=== PATIENT | male | born 1995 | race Caucasian/White ===

== ENCOUNTER 2017-09-24 23:28 | Emergency (ER) | payer SELFPAY ==
[2017-09-25] MEDS ORDERED: ACETAMINOPHEN 325 MG TAB PO ONE
[2017-09-25] MEDS ORDERED: NS 1,000 ML IV ONE
[2017-09-25] MEDS ORDERED: OXYCODONE/APAP 5/325 TAB PO ONE
[2017-09-25] MEDS ORDERED: ACETAMINOPHEN 325 MG TAB ONE
--- NOTE | 2017-09-25 | EDPHY ---
General Time Seen by Provider: 09/24/17 23:48 Narrative: CHIEF COMPLAINT: Cough, body aches, twitching, fever HISTORY OF PRESENT ILLNESS: Patient complains of 2 days history of fever, cough, body aches. He describes malaise, twitching of the muscles. Symptoms are [id number]. They are persistent and constant. Minimal improvement with gdak-[id number] ibuprofen. He has occasional headache when he feels his temperature arising. He has no neck pain or stiffness. No chest pain. No abdominal pain. No urinary complaints. No sore throat. No rash. His cough is mostly dry and nonproductive. No other associated complaints or modifying factors. REVIEW OF SYSTEMS: Ten systems reviewed and are negative unless otherwise noted in the HPI PCP: None SPECIALISTS: None PAST MEDICAL HISTORY: Denies any medical history PAST SURGICAL HISTORY: Denies any surgical history SOCIAL HISTORY: Daily smoker. Rare alcohol use. Rare marijuana use. Currently working in living here locally. Originally from [place], moving here 1 year ago FAMILY HISTORY: Noncontributory EXAMINATION General Appearance: Alert, no distress, perseverating Head: normocephalic, atraumatic Eyes: Pupils equal and round, no conjunctival pallor or injection. No icterus. ENT, Mouth: Mucous membranes dry. Airway widely patent. There is no erythema or edema Neck: Normal inspection, supple, non-tender. Painless range of motion in all planes. No meningeal signs. Respiratory: Scattered rhonchi. No wheezing. No crackles. No diminishment. No distress. Cardiovascular: Tachycardic rate. Regular rhythm. No murmur Gastrointestinal: Abdomen is soft and nontender. Nondistended. No hepatosplenomegaly. Back: non-tender, no bony abnormalities Neurological: GCS 15. A&O, nonfocal, normal gait. Strength is symmetric in all 4 limbs. Skin: Warm and dry, no rash. No petechiae. No purpura. Extremities: Nontender, no pedal edema Psychiatric: Mood and affect normal DIFFERENTIAL DIAGNOSES: Including but not limited to influenza, bronchitis, pneumonia, meningitis, dehydration, viral syndrome MDM: 11:55 p.m. Flu-like symptoms with examination that is consistent with this. He does have a fever at time of arrival he is also tachycardic. He is not tachypneic. He is not hypoxemic. He has not hypotensive. His examination does appear to be that of influenza. He has no nuchal rigidity or meningeal signs. He does have mild rhonchi but no crackles or diminishment on auscultation. I have ordered IV placement and IV fluid due to his tachycardia and apparent dehydration. I have ordered laboratory studies and influenza test. I have also ordered Tylenol and 1 Percocet for his cough and body aches. He is in no acute distress. 12:30 a.m. CBC is unremarkable with a mild viral shift. No leukocytosis. I re-evaluated the patient is feeling significantly better after IV fluid. High suspicion for influenza or influenza type illness. He remains awake alert no acute distress. He no longer feels warm and does not have a fever at this time. I do feel he will be stable for discharge home with symptomatic medications as discussed. Influenza test is pending but he is not a Tamiflu candidate regardless of the result. He will be discharged home with instructions to increase fluid intake, ibuprofen [id number] and nausea medicine as provided. Also short course of Tylenol with codeine for the cough and should she developed body aches. He has strict ED precautions discussed. He has instructions to follow up with primary care physician outpatient, and I provided the on-call information for him. He is comfortable with this plan and will be discharged home stable condition. SUPERVISION: Patient was independently examined, but I discussed the case with my secondary supervising physician Dr. Pan - History Smoking Status: Current some day smoker - Objective Vital Signs: Initial Vital Signs Temperature (C) 102.4 F H 09/24/17 23:34 Heart Rate 103 H 09/24/17 23:34 Respiratory Rate 20 09/24/17 23:34 Blood Pressure 102/65 09/24/17 23:34 O2 Sat (%) 93 09/24/17 23:34 O2 Delivery Mode Room Air Allergies/Adverse Reactions: Penicillins Allergy (Verified 09/27/17 11:58) Home Medications: Medication Instructions Recorded Ibuprofen 09/24/17 Testosterone IM 09/24/17 Acetaminophen/Codeine 300/30Mg 1 each PO Q6 PRN #7 tab 09/25/17 [Tylenol #3 (*)] Laboratory Results: Laboratory Results 09/25/17 00:10 09/25/17 00:10 Medications Given: Discontinued Medications Acetaminophen (Tylenol) 650 mg PO EDNOW ONE Stop: 09/25/17 00:01 Last Admin: 09/25/17 00:02 Dose: 650 mg Sodium Chloride (Ns) 1,000 mls @ 0 mls/hr IV EDNOW ONE; Wide Open PRN Reason: Protocol Stop: 09/25/17 00:01 Last Admin: 09/25/17 00:13 Dose: 1,000 mls Oxycodone/Acetaminophen (Percocet 5/325) 1 tab PO EDNOW ONE Stop: 09/25/17 00:01 Last Admin: 09/25/17 01:04 Dose: Not Given Departure - Departure Disposition: Home, Routine, Self-Care Clinical Impression: Influenza-like symptoms, Bronchitis Condition: Good Instructions: Influenza (ED), Acute Bronchitis (ED) Additional Instructions: 1. Ibuprofen 600 mg every 8 hr as needed 2. Tylenol 500mg every 6 hr as needed. You may take up to 1000 mg every 6 hr if you are not taking the medication I prescribed 3. Medication as prescribed as needed 4. Contact the on-call primary care physician as provided 5. ED precautions as discussed Referrals: [facility],. [Clinic] - As per Instructions Judit Sears MD [Medical Doctor] - As per Instructions Stand Alone Forms: Work Excuse Prescriptions: Acetaminophen/Codeine 300/30Mg [Tylenol #3 (*)] 1 each PO Q6 PRN #7 tab PRN Reason: Pain, Mild
[2017-09-25 00:19] LABS: PLATELET COUNT 113 10^3/uL (150-400)
[2017-09-25 01:05] VITALS: BP 110/65; PULSE 76; RESP 16; TEMP 99.5; O2SAT 95
== END 2017-09-25 01:04 | disposition home or self-care (01) ==
DX: J11.1 Influenza due to unidentified influenza virus with other respiratory manifestations (principal); J40 Bronchitis, not specified as acute or chronic; F17.200 Nicotine dependence, unspecified, uncomplicated; E86.9 Volume depletion, unspecified

== ENCOUNTER 2017-09-27 11:53 | Emergency (ER) | payer BC ==
--- NOTE | 2017-09-27 12:14 | EDPHY ---
H & P Time Seen by Provider: 09/27/17 12:06 HPI/ROS: CHIEF COMPLAINT: Re-evaluation pneumothorax HISTORY OF PRESENT ILLNESS: 22-year-old male in the ER for recheck after he was diagnosed with a small apical pneumothorax 3 days ago in the emergency department. He has continued URI symptoms. His pain is controlled. No new dyspnea. No chest pain. No neck pain. REVIEW OF SYSTEMS: A ten point review of systems was performed and is negative with the exception of the items mentioned in the HPI PAST MEDICAL & SURGICAL HISTORY: No pertinent medical or surgical history SOCIAL HISTORY: No drug use PHYSICAL EXAM (Prior to examination, patient consented to physical exam, hands were washed and my usual and customary physical exam procedures followed) 1) GENERAL: Well-developed, well-nourished, alert and oriented. Appears to be in no acute distress. Speaking full sentences no signs of respiratory distress 2) HEAD: Normocephalic, atraumatic 3) HEENT: Pupils equal, round, reactive to light bilaterally. Sclera anicteric. Nasopharynx, oropharynx, clear, no lesions. Ears bilaterally with normal tympanic membranes. 4) NECK: Full range of motion, no meningeal signs. 5) LUNGS: Clear auscultation bilaterally, no wheezes, no rhonchi, no retractions. No crepitus. 6) HEART: Regular rate and rhythm, no murmur, no heave, no gallop. 7) ABDOMEN: No guarding, no rebound, no focal tenderness, negative McBurney's, negative Galarza's, negative Rovsing's, negative peritoneal sign, 8) MUSCULOSKELETAL: Moving all extremities, no focal areas of tenderness, no obvious trauma. No peripheral edema or discoloration. 9) BACK: No CVA tenderness, no midline vertebral tenderness, no fluctuance, no step-off, no obvious trauma, no visual or palpable abnormality. 10) SKIN: No rash, no petechiae. 11) Psychiatric: Patient is oriented X 3, there is no agitation. DIFFERENTIAL DIAGNOSIS: In no particular include but limited to pneumonia, resolving pneumothorax, increasing pneumothorax Smoking Status: Current some day smoker Constitutional: Initial Vital Signs Temperature (C) 37.3 C 09/27/17 12:00 Heart Rate 86 09/27/17 12:00 Respiratory Rate 18 09/27/17 12:00 Blood Pressure 121/68 H 09/27/17 12:00 O2 Sat (%) 95 09/27/17 12:00 O2 Delivery Mode Room Air Allergies/Adverse Reactions: Penicillins Allergy (Verified 09/27/17 11:58) Home Medications: Medication Instructions Recorded Ibuprofen 09/24/17 Testosterone IM 09/24/17 Acetaminophen/Codeine 300/30Mg 1 each PO Q6 PRN #7 tab 09/25/17 [Tylenol #3 (*)] MDM/Departure - MDM Imaging Results: Imaging Impressions Chest X-Ray 09/27/17 11:55 Impression: No evidence for a left pneumothorax. No evidence for acute cardiopulmonary abnormality. Images reviewed myself ED Course/Re-evaluation: Patient was re-evaluated with serial examinations most recent 12:57 p.m.. I discussed his imaging results showing no identifiable pneumothorax. I think the patient can be discharged home. We discussed his URI symptoms. We discussed supportive therapy for URI. Plan will be discharge home, given a note for work and school. Avoid going to altitude. Given follow-up information with Dr. Jasmine Weaver for follow-up of spontaneous pneumothorax although there is currently no evidence for this. To return to ER immediately if you develop shortness of breath or any other symptoms that concern him. Care of patient under supervision of [secondary] supervising physician Dr Pablo Chambers with whom I discussed case. - Depart Disposition: Home, Routine, Self-Care Clinical Impression: Resolved pneumothorax Condition: Good Instructions: Spontaneous Pneumothorax (ED) Additional Instructions: Return to the ER immediately if you develop shortness of breath, chest pain or any other symptoms that concern you. Do not go to elevation higher than [place]. Stand Alone Forms: School Excuse, Work Excuse Referrals: Jasmine Weaver MD [Medical Doctor] - As per Instructions
[2017-09-27 13:25] VITALS: BP 107/66; PULSE 72; RESP 20; TEMP 98.8; O2SAT 94
== END 2017-09-27 13:23 | disposition home or self-care (01) ==
DX: J93.9 Pneumothorax, unspecified (principal); F17.200 Nicotine dependence, unspecified, uncomplicated